=== PATIENT | female | born 1965 | race African-American/Black ===

== ENCOUNTER 2024-02-24 19:27 | Emergency (ER) | payer MEDICAID, OTHER ==
[~2024-02-24] VITALS: Ht 167.6 cm; Wt 118.0 kg
[~2024-02-24 19:27] MED LIST: AMLO10TA80 PO; ATOR-2 PO; CEFD300C3 MT; DOXY100C5 MT; FLUT1DIS3 INH; HYDR100T26 MT; INSU100I24 SQ; LEVO25TA7 MT; METR-167 MT; MONT-39 PO
[2024-02-24 19:36] VITALS: BP 142/94; PULSE 93; RESP 14; TEMP 98.4; O2SAT 99
[2024-02-24] MEDS ORDERED: MECLIZINE 25MG TABLET PO ONE (19:45)
[2024-02-24] MEDS: MECLIZINE 12.5MG TABLET PO NR (20:00)
[2024-02-24 20:53] LABS: BASOPHILS % 0.3 % (0.0-2.0); DIFFERENTIAL COMMENT 0; EOSINOPHILS % 0.7 % (0.0-5.0); HEMATOCRIT. 30.3 % (36.0-48.0); LYMPHOCYTES % 19.8 % (20.0-50.0); MEAN CORPUSCULAR HEMOGLOBIN 25.9 pg (28.0-32.0); MEAN CORPUSCULAR VOLUME 78.4 fL (81.0-99.0); MEAN PLATELET VOLUME 8.7 fl (7.4-10.4); MONOCYTES % 6.1 % (2.0-8.0); NEUTROPHILS % 73.1 % (40.0-76.0); PLATELET 412 x1000/uL (130-400); RED BLOOD CELL COUNT 3.87 mill/uL (4.2-5.4); RED CELL DISTRIBUTION WIDTH 15.5 % (11.6-14.6); WHITE BLOOD COUNT 10.6 x1000/uL (4.5-11.0)
[2024-02-24 21:00] LABS: CHLORIDE 103 mEq/L (98-107); POTASSIUM 3.8 mEq/L (3.5-5.1); SODIUM 138 mEq/L (136-145)
[2024-02-24 21:01] LABS: CALCIUM 10.1 mg/dL (8.7-10.4); CARBON DIOXIDE 29 mEq/L (21-32)
[2024-02-24 21:06] LABS: GLUCOSE 151 mg/dL (70-105); UREA NITROGEN BLOOD 17 mg/dL (9-23)
[2024-02-24 21:07] LABS: CREATININE 1.4 mg/dL (0.6-1.0); TROPONIN I HIGH SENSITIVITY < 4 ng/L (3.0-34)
[2024-02-24] MEDS: METOCLOPRAMIDE HCL 10MG TABLET PO ONE (21:33)
[2024-02-24] MEDS: DIAZEPAM 5 MG TABLET PO ONE (21:33)
[2024-02-24] MEDS ORDERED: MECL-299 MT (21:49)
== END 2024-02-24 21:59 | disposition home or self-care (01) ==
LOC: ER 20:06 → CANBEDREQ 02-25 21:28
DX: R42 Dizziness and giddiness (principal); E78.00 Pure hypercholesterolemia, unspecified; E11.9 Type 2 diabetes mellitus without complications; I10 Essential (primary) hypertension; J45.909 Unspecified asthma, uncomplicated; Z79.4 Long term (current) use of insulin; Z79.899 Other long term (current) drug therapy; Z98.890 Other specified postprocedural states
CPT/HCPCS: 99284; 70450; 80048; 85025; 84484; 36415; 93005; J8597 ×2

== ENCOUNTER 2024-03-03 15:36 | Inpatient (IN) | payer MEDICAID, OTHER ==
[~2024-03-03] VITALS: Ht 167.6 cm; Wt 109.3 kg
[~2024-03-03 15:36] MED LIST changes: +MECL-299 MT
[2024-03-03] MEDS: ONDANSETRON HCL 4MG/2ML INJ IV STA (16:12)
[2024-03-03] MEDS: MORPHINE SULFATE 4 MG/ML INJ (FOR IV/IM USE) IV STA (16:12)
[2024-03-03] MEDS: SODIUM CHLORIDE 0.9% 1,000 ML IV ONE (16:12)
[2024-03-03 16:39] LABS: BASOPHILS % 0.6 % (0.0-2.0); DIFFERENTIAL COMMENT 0; EOSINOPHILS % 0.6 % (0.0-5.0); HEMATOCRIT. 35.5 % (36.0-48.0); HEMOGLOBIN. 11.6 g/dL (12.0-16.0); LYMPHOCYTES % 21.4 % (20.0-50.0); MEAN CORPUSCULAR HEMOGLOBIN 25.9 pg (28.0-32.0); MEAN CORPUSCULAR HGB CONC 32.7 g/dL (31.0-37.0); MEAN PLATELET VOLUME 8.9 fl (7.4-10.4); MONOCYTES % 4.1 % (2.0-8.0); NEUTROPHILS % 73.3 % (40.0-76.0); PLATELET 618 x1000/uL (130-400); RED CELL DISTRIBUTION WIDTH 15.6 % (11.6-14.6); WHITE BLOOD COUNT 14.7 x1000/uL (4.5-11.0)
[2024-03-03 16:50] LABS: INR 0.9; PROTHROMBIN TIME 10.5 sec (9.6-11.0)
[2024-03-03 16:54] LABS: CARBON DIOXIDE 23 mEq/L (21-32); CHLORIDE 103 mEq/L (98-107); POTASSIUM 4.3 mEq/L (3.5-5.1); SODIUM 138 mEq/L (136-145)
[2024-03-03 16:55] LABS: CALCIUM 10.7 mg/dL (8.7-10.4)
[2024-03-03 17:00] LABS: CREATININE 1.4 mg/dL (0.6-1.0); GLUCOSE 139 mg/dL (70-105); UREA NITROGEN BLOOD 16 mg/dL (9-23)
[2024-03-03 17:02] LABS: ALANINE AMINOTRANSFERASE < 7 IU/L (10-49); ALBUMIN 4.3 g/dL (3.2-4.8); ASPARTATE AMINOTRANSFERASE 10 IU/L (<34); BILIRUBIN DIRECT 0.1 mg/dL (<=3.0); BILIRUBIN TOTAL 0.4 mg/dL (0.1-1.0); PROTEIN TOTAL 8.8 g/dL (6.0-8.3)
[2024-03-03 17:11] LABS: TROPONIN I HIGH SENSITIVITY < 4 ng/L (3.0-34)
[2024-03-03 18:17] LABS: TROPONIN I HIGH SENSITIVITY < 4 ng/L (3.0-34)
[2024-03-03 18:24] LABS: CLARITY URINE CLOUDY (CLEAR); COLOR URINE YELLOW (YELLOW); GLUCOSE URINE NEGATIVE (NEGATIVE); KETONES URINE NEGATIVE (NEGATIVE); LEUKOCYTE ESTERASE URINE TRACE (NEGATIVE); NITRITE URINE NEGATIVE (NEGATIVE); OCCULT BLOOD URINE NEGATIVE (NEGATIVE); PH URINE 6.5 (4.5-8.0); PROTEIN URINE 1+ (NEGATIVE); SPECIFIC GRAVITY URINE 1.014 (1.005-1.030); UROBILINOGEN URINE 0.2 E.U./dL (0.2-1.0)
[2024-03-03 18:51] LABS: BACTERIA URINE 2+; HYALINE CASTS URINE 0-5 /lpf; RBC URINE NONE SEEN /hpf (0-2); SQUAMOUS EPITHELIAL CELL URINE 2+ /lpf (RARE/1+)
[2024-03-03] MEDS: CEFTRIAXONE 1GM/50ML 50 ML IV ONE (21:44)
[2024-03-04 00:24] VITALS: BP 121/76; PULSE 87; RESP 18; TEMP 97.4
[2024-03-04] MEDS ORDERED: HYDROCODONE/ACETAMINOPHEN 10/325MG TABLET PO PRN ×2 (01:00→01:15)
[2024-03-04] MEDS ORDERED: DEXTROSE 50% WATER 50ML SYRINGE IV PRN (01:00)
[2024-03-04] MEDS ORDERED: NALOXONE HCL 0.4MG/ML VIAL IV PRN (01:30)
[2024-03-04] MEDS: LEVOTHYROXINE SODIUM 25MCG TABLET PO SCH (06:33)
[2024-03-04] MEDS: BLOOD SUGAR DIAGNOSTIC STRIP TEST SCH (06:53)
[2024-03-04 08:00] VITALS: BP 104/62; PULSE 86; RESP 18; TEMP 97.7
[2024-03-04] MEDS: AMLODIPINE 10MG TABLET PO SCH (09:00)
[2024-03-04 10:15] LABS: BASOPHILS % 0.2 % (0.0-2.0); EOSINOPHILS % 0.9 % (0.0-5.0); HEMATOCRIT. 32.4 % (36.0-48.0); HEMOGLOBIN. 10.1 g/dL (12.0-16.0); LYMPHOCYTES % 24.5 % (20.0-50.0); MEAN CORPUSCULAR HEMOGLOBIN 25.5 pg (28.0-32.0); MEAN CORPUSCULAR HGB CONC 31.2 g/dL (31.0-37.0); MEAN CORPUSCULAR VOLUME 81.7 fL (81.0-99.0); MEAN PLATELET VOLUME 8.3 fl (7.4-10.4); MONOCYTES % 5.3 % (2.0-8.0); NEUTROPHILS % 69.1 % (40.0-76.0); PLATELET 418 x1000/uL (130-400); RED BLOOD CELL COUNT 3.97 mill/uL (4.2-5.4); RED CELL DISTRIBUTION WIDTH 15.5 % (11.6-14.6)
[2024-03-04 10:50] LABS: POTASSIUM 4.6 mEq/L (3.5-5.1)
[2024-03-04 10:52] LABS: CALCIUM 10.2 mg/dL (8.7-10.4)
[2024-03-04 10:56] LABS: CREATININE 1.4 mg/dL (0.6-1.0)
[2024-03-04] MEDS: MONTELUKAST SODIUM 10MG TABLET PO SCH (18:32)
[2024-03-04] MEDS: INSULIN LISPRO 100 UNITS/ML SUBCUT SCH (21:00)
[2024-03-04] MEDS: ATORVASTATIN CALCIUM 40MG TABLET PO SCH (21:08)
[2024-03-04] MEDS: CEFTRIAXONE 1GM/50ML 50 ML IV SCH (21:17)
[2024-03-05] VITALS: BP 101/55; PULSE 97; RESP 18; TEMP 97.3
[2024-03-05 04:00] VITALS: BP 113/78; PULSE 89; RESP 18; TEMP 97.5
[2024-03-05 08:00] VITALS: BP 112/50; PULSE 86; RESP 20; TEMP 98.1
[2024-03-05] MEDS: HYDROCODONE/ACETAMINOPHEN 10/325MG TABLET PO PRN (08:42)
[2024-03-05 10:03] LABS: BASOPHILS % 0.5 % (0.0-2.0); DIFFERENTIAL COMMENT 0; EOSINOPHILS % 1.2 % (0.0-5.0); HEMATOCRIT. 28.9 % (36.0-48.0); HEMOGLOBIN. 9.4 g/dL (12.0-16.0); LYMPHOCYTES % 28.7 % (20.0-50.0); MEAN CORPUSCULAR HEMOGLOBIN 25.5 pg (28.0-32.0); MEAN CORPUSCULAR HGB CONC 32.4 g/dL (31.0-37.0); MEAN CORPUSCULAR VOLUME 78.5 fL (81.0-99.0); MEAN PLATELET VOLUME 8.6 fl (7.4-10.4); MONOCYTES % 5.6 % (2.0-8.0); PLATELET 371 x1000/uL (130-400); RED BLOOD CELL COUNT 3.68 mill/uL (4.2-5.4); RED CELL DISTRIBUTION WIDTH 15.5 % (11.6-14.6); WHITE BLOOD COUNT 7.9 x1000/uL (4.5-11.0)
[2024-03-05 11:02] LABS: POTASSIUM 3.9 mEq/L (3.5-5.1)
[2024-03-05 11:03] LABS: CALCIUM 10.2 mg/dL (8.7-10.4)
[2024-03-05 11:08] LABS: CREATININE 1.2 mg/dL (0.6-1.0)
[2024-03-05 12:00] VITALS: BP 110/60; PULSE 78; RESP 20; TEMP 98.4
[2024-03-05 16:00] VITALS: BP 134/72; PULSE 81; RESP 20; TEMP 98.3
[2024-03-05 20:00] VITALS: BP 111/36; PULSE 64; RESP 18; TEMP 96.8
[2024-03-06] VITALS: BP 114/57; PULSE 82; RESP 18; TEMP 97.2
[2024-03-06 06:54] LABS: CALCIUM 10.2 mg/dL (8.7-10.4); CARBON DIOXIDE 26 mEq/L (21-32); CHLORIDE 104 mEq/L (98-107); POTASSIUM 4.3 mEq/L (3.5-5.1); SODIUM 139 mEq/L (136-145)
[2024-03-06 07:00] LABS: CREATININE 1.1 mg/dL (0.6-1.0); GLUCOSE 93 mg/dL (70-105); UREA NITROGEN BLOOD 14 mg/dL (9-23)
[2024-03-06 07:09] LABS: BASOPHILS % 0.3 % (0.0-2.0); DIFFERENTIAL COMMENT 0; EOSINOPHILS % 1.6 % (0.0-5.0); HEMATOCRIT. 27.7 % (36.0-48.0); HEMOGLOBIN. 9.1 g/dL (12.0-16.0); LYMPHOCYTES % 29.9 % (20.0-50.0); MEAN CORPUSCULAR VOLUME 78.7 fL (81.0-99.0); MEAN PLATELET VOLUME 8.6 fl (7.4-10.4); MONOCYTES % 6.9 % (2.0-8.0); NEUTROPHILS % 61.3 % (40.0-76.0); PLATELET 331 x1000/uL (130-400); RED BLOOD CELL COUNT 3.52 mill/uL (4.2-5.4); RED CELL DISTRIBUTION WIDTH 15.2 % (11.6-14.6); WHITE BLOOD COUNT 7.6 x1000/uL (4.5-11.0)
[2024-03-06 20:00] VITALS: BP 121/69; PULSE 84; RESP 20; TEMP 99.7
[2024-03-07] VITALS: BP 127/69; PULSE 95; RESP 20; TEMP 98.8
[2024-03-07 08:20] VITALS: BP 157/61; PULSE 87; RESP 20; TEMP 98
[2024-03-07 09:59] VITALS: BP 127/61; PULSE 87; TEMP 98; O2SAT 100
[2024-03-07 12:00] VITALS: BP 110/61; PULSE 81; RESP 18; TEMP 97.9
== END 2024-03-07 13:45 | disposition home or self-care (01) | DRG 249 ==
LOC: ER 15:36 → 6WST 22:19 → EDBEDREQTM 22:25 → EDBEDREQ 22:25
PROVIDERS: ADMIT Internal Medicine; ATTEND Internal Medicine
DX: A08.4 Viral intestinal infection, unspecified (principal); R18.8 Other ascites; R65.10 Systemic inflammatory response syndrome (SIRS) of non-infectious origin without acute organ dysfunction; R16.0 Hepatomegaly, not elsewhere classified; N13.6 Pyonephrosis; N39.0 Urinary tract infection, site not specified; D25.9 Leiomyoma of uterus, unspecified; J45.909 Unspecified asthma, uncomplicated; E66.9 Obesity, unspecified; E11.9 Type 2 diabetes mellitus without complications; Z68.38 Body mass index [BMI] 38.0-38.9, adult; I10 Essential (primary) hypertension; E78.00 Pure hypercholesterolemia, unspecified
CPT/HCPCS: 36415; 71045; 74176; 80048; 80061; 80076; 81003; 82962; 83036; 84484; 85025; 93005; 99285; J0696; J1815; J2270; J2405; J7030

== ENCOUNTER 2024-03-25 21:13 | Emergency (ER) | payer MEDICAID ==
[~2024-03-25] VITALS: Ht 167.6 cm; Wt 109.0 kg
[~2024-03-25 21:13] MED LIST changes: -CEFD300C3 MT; -DOXY100C5 MT; -METR-167 MT
[2024-03-25 21:16] VITALS: TEMP 99.1; O2SAT 96
[2024-03-25] MEDS ORDERED: ACETAMINOPHEN WITH CODEINE 300/30MG TABLET PO STA (21:28)
[2024-03-25 21:54] LABS: BASOPHILS % 0.4 % (0.0-2.0); DIFFERENTIAL COMMENT 0; EOSINOPHILS % 0.8 % (0.0-5.0); HEMATOCRIT. 34.5 % (36.0-48.0); HEMOGLOBIN. 11.2 g/dL (12.0-16.0); LYMPHOCYTES % 25.1 % (20.0-50.0); MEAN CORPUSCULAR HEMOGLOBIN 25.9 pg (28.0-32.0); MEAN CORPUSCULAR HGB CONC 32.5 g/dL (31.0-37.0); MEAN CORPUSCULAR VOLUME 79.7 fL (81.0-99.0); MEAN PLATELET VOLUME 8.6 fl (7.4-10.4); MONOCYTES % 4.1 % (2.0-8.0); NEUTROPHILS % 69.6 % (40.0-76.0); PLATELET 434 x1000/uL (130-400); RED BLOOD CELL COUNT 4.32 mill/uL (4.2-5.4); RED CELL DISTRIBUTION WIDTH 16.5 % (11.6-14.6)
[2024-03-25 21:58] LABS: CHLORIDE 105 mEq/L (98-107); POTASSIUM 3.9 mEq/L (3.5-5.1); SODIUM 136 mEq/L (136-145)
[2024-03-25 21:58] LABS: CLARITY URINE CLEAR (CLEAR); COLOR URINE YELLOW (YELLOW); GLUCOSE URINE NEGATIVE (NEGATIVE); KETONES URINE NEGATIVE (NEGATIVE); LEUKOCYTE ESTERASE URINE NEGATIVE (NEGATIVE); NITRITE URINE NEGATIVE (NEGATIVE); OCCULT BLOOD URINE NEGATIVE (NEGATIVE); PH URINE 5.5 (4.5-8.0); PROTEIN URINE 2+ (NEGATIVE); SPECIFIC GRAVITY URINE 1.018 (1.005-1.030)
[2024-03-25 21:59] LABS: CALCIUM 10.1 mg/dL (8.7-10.4); CARBON DIOXIDE 23 mEq/L (21-32)
[2024-03-25 22:04] LABS: GLUCOSE 163 mg/dL (70-105); UREA NITROGEN BLOOD 15 mg/dL (9-23)
[2024-03-25 22:06] LABS: ALANINE AMINOTRANSFERASE < 7 IU/L (10-49); ALBUMIN 4.3 g/dL (3.2-4.8); ASPARTATE AMINOTRANSFERASE 12 IU/L (<34); BILIRUBIN DIRECT 0.1 mg/dL (<=3.0); BILIRUBIN TOTAL 0.4 mg/dL (0.1-1.0); PROTEIN TOTAL 8.7 g/dL (6.0-8.3)
[2024-03-25 22:15] LABS: BACTERIA URINE 2+; RBC URINE 0-2 /hpf (0-2); SQUAMOUS EPITHELIAL CELL URINE 1+ /lpf (RARE/1+); WBC URINE 0-2 /hpf (0-2)
[2024-03-25] MEDS ORDERED: CEPH500C2 MT (22:33)
[2024-03-25] MEDS ORDERED: T3 PO (22:33)
[2024-03-25] MEDS: ACETAMINOPHEN WITH CODEINE 300/30MG TABLET PO NR (22:35)
[2024-03-25 23:03] VITALS: BP 158/81; PULSE 85; RESP 20
== END 2024-03-25 23:06 | disposition home or self-care (01) ==
LOC: ER 21:13
DX: D26.9 Other benign neoplasm of uterus, unspecified (principal); J45.909 Unspecified asthma, uncomplicated; E11.9 Type 2 diabetes mellitus without complications; E78.00 Pure hypercholesterolemia, unspecified; I10 Essential (primary) hypertension; Z79.899 Other long term (current) drug therapy
CPT/HCPCS: 36415; 74176; 80048; 80076; 81003; 85025; 99284

== ENCOUNTER 2024-07-09 21:33 | Emergency (ER) | payer MEDICAID ==
[~2024-07-09] VITALS: Ht 170.2 cm; Wt 127.0 kg
[~2024-07-09 21:33] MED LIST changes: +CEPH500C2 MT; +HYDR100T11 MT; -HYDR100T26 MT; +T3 PO
[2024-07-09 21:37] VITALS: BP 125/79; PULSE 94; RESP 18; TEMP 98.1; O2SAT 100
[2024-07-09] MEDS ORDERED: ACETAMINOPHEN 1000MG/100ML 100 ML IV ONE (23:30)
[2024-07-09] MEDS ORDERED: ONDANSETRON HCL 4MG/2ML INJ IV ONE (23:30)
[2024-07-09 23:40] LABS: BASOPHILS % 0.9 % (0.0-2.0); EOSINOPHILS % 1.1 % (0.0-5.0); HEMATOCRIT. 33.8 % (36.0-48.0); HEMOGLOBIN. 10.9 g/dL (12.0-16.0); LYMPHOCYTES % 28.6 % (20.0-50.0); MEAN CORPUSCULAR HEMOGLOBIN 26.1 pg (28.0-32.0); MEAN CORPUSCULAR HGB CONC 32.2 g/dL (31.0-37.0); MEAN CORPUSCULAR VOLUME 81.1 fL (81.0-99.0); MEAN PLATELET VOLUME 8.1 fl (7.4-10.4); MONOCYTES % 4.6 % (2.0-8.0); NEUTROPHILS % 64.8 % (40.0-76.0); PLATELET 513 x1000/uL (130-400); RED BLOOD CELL COUNT 4.17 mill/uL (4.2-5.4); RED CELL DISTRIBUTION WIDTH 15.5 % (11.6-14.6); WHITE BLOOD COUNT 10.2 x1000/uL (4.5-11.0)
[2024-07-10 00:03] LABS: CALCIUM 10.1 mg/dL (8.7-10.4); CARBON DIOXIDE 31 mEq/L (21-32)
[2024-07-10 00:08] LABS: CREATININE 0.8 mg/dL (0.6-1.0); GLUCOSE 117 mg/dL (70-105); UREA NITROGEN BLOOD 8 mg/dL (9-23)
[2024-07-10 00:10] LABS: ALANINE AMINOTRANSFERASE < 7 IU/L (10-49); ALBUMIN 4.2 g/dL (3.2-4.8); ASPARTATE AMINOTRANSFERASE 11 IU/L (<34); BILIRUBIN TOTAL 0.3 mg/dL (0.1-1.0); PROTEIN TOTAL 7.9 g/dL (6.0-8.3)
[2024-07-10 00:36] LABS: BILIRUBIN DIRECT < 0.1 mg/dL (<=3.0)
[2024-07-10 00:37] LABS: TROPONIN I HIGH SENSITIVITY < 4 ng/L (3.0-34)
[2024-07-10 00:48] LABS: CHLORIDE 104 mEq/L (98-107); POTASSIUM 3.7 mEq/L (3.5-5.1); SODIUM 140 mEq/L (136-145)
[2024-07-10] MEDS ORDERED: ONDA4TAB50 MT (02:56)
[2024-07-10] MEDS ORDERED: ACET-2708 MT (02:56)
== END 2024-07-10 04:08 | disposition home or self-care (01) ==
LOC: ER 21:33
DX: G89.18 Other acute postprocedural pain (principal); R10.10 Upper abdominal pain, unspecified; J45.909 Unspecified asthma, uncomplicated; E11.9 Type 2 diabetes mellitus without complications; I10 Essential (primary) hypertension; Z90.710 Acquired absence of both cervix and uterus; Z79.899 Other long term (current) drug therapy
CPT/HCPCS: 36415; 74176; 80048; 80076; 82962; 84484; 85025; 99284; J0131